=== PATIENT | male | born 1975 | race Caucasian/White ===

== ENCOUNTER 2016-10-27 14:57 | Emergency (ER) | payer OTHER ==
[2016-10-27] MEDS: ORPHENADRINE CITRATE 60 MG/2ML IM ONE (15:45)
[2016-10-27] MEDS: KETOROLAC TROMETHAMINE 60 MG/2 ML VIAL IM ONE (15:45)
--- NOTE | 2016-10-27 16:07 | ED Physician Documentation ---
Low Back Pain - HISTORIAN Historian: patient - HPI Stated Complaint: low back pain Chief Complaint: Low Back Pain/ Injury History: back pain (recurent) Onset: days ago (1) Duration: continues in ED Recent Injury: No Severity: moderate Quality: sharp, similar- prior back pain Front/Back of Body, Lg (Color): 1 - pain Associated Symptoms: denies: problems urinating Worsened By:: movement to RT flexion, movement to LT flexion Relieved By: nothing Further Comments: no - ROS CONST: no problems CVS/RESP: none EYES/ENT: none MS/SKIN/LYMPH: none Neuro/Psych: none - PAST HX Past History: back pain Surgeries/Procedures: none Immunizations: referred to PCP Allergies/Adverse Reactions: Allergies Allergy/AdvReac Type Severity Reaction Status Date / Time No Known Allergies Allergy Verified 10/27/16 15:03 Home Medications: Ambulatory Orders Medication Instructions Recorded NK [NK] 10/27/16 - SOCIAL HX Smoking History: non-smoker Alcohol Use: none Drug Use: none - FAMILY HX Family History: no significant history - VITAL SIGNS Vital Signs: Vital Signs Temp Pulse Resp BP Pulse Ox 98.2 F 82 16 110/73 98 10/27/16 16:20 10/27/16 16:20 10/27/16 16:20 10/27/16 16:20 10/27/16 16:20 - REVIEWED ASSESSMENTS Nursing Assessment Reviewed: Yes Vitals Reviewed: Yes Progress - Results/Orders Results/Orders: ua, l-spine x-ray ordered - Progress Progress: pt. given 60 mg toradol and 60 mg norflex im in er Critical Care Note - Critical Care Note Total Time (mins): 0 ED Results Lab/Radiology - Lab Results Lab Results: ua neg for blood or infection - Radiology Radiology Impressions: l-spine x-ray shows ddd L5-S1 - Orders Orders: ED Orders Category Date Time Status LUMBAR SPINE XR 2 OR 3 VIEWS [L SPINE 2 OR 3 VIEWS] [ Exams 10/27/16 Ordered RAD] Stat URINALYSIS Routine Lab 10/27/16 Ordered Ketorolac Tromethamine [Toradol] Med 10/27/16 15:29 Discontinued 60 mg IM NOW ONE Orphenadrine Citrate [Norflex] Med 10/27/16 15:31 Discontinued 60 mg IM NOW ONE Low Back Pain/Injury - Physical Exam General Appearance: alert, moderate distress EENT: eye inspection normal, ENT inspection normal, pharynx normal, no signs of dehydration, SILVIANO Neck: non-tender, painless ROM, trachea midline Resp/CVS: chest non-tender, breath sounds nml, heart sounds nml, no resp. distress, lungs clear, reg. rate & rhythm Abdomen: non-tender, no organomegaly, no pulsatile mass Back: other (tenderness L5-S1 right, pain with rom) Straight Leg Raising: Positive Left, Positive Right Neuro/Psych: oriented x3, motor nml, sensation nml, bilat. doriflexion nml, reflexes nml, mood/affect nml Skin: warm/dry, normal color Extremities: non-tender, normal range of motion, no evidence of injury, no edema Discharge Clincal Impression: Lumbar strain Qualifiers: Encounter type: initial encounter Qualified Code(s): S39.012A - Strain of muscle, fascia and tendon of lower back, initial encounter Referrals: Primary Doctor,No [Primary Care Provider] - 2 Days Additional Instructions: Moist heat to low back Home Medications: Ambulatory Orders NK [NK] 10/27/16 Comments: Discharged with scripts for meloxicam 1 pill daily and parafon forte 1 pill 4x/ day Condition: Stable Disposition: 01 HOME, SELF-CARE Decision to Admit: NO Decision Time: 16:06
[2016-10-27 16:22] VITALS: BP 110/73
--- NOTE | 2016-10-27 19:05 | Diagnostic Imaging Report ---
JACQUELYN NARAYANAN [facility] [address] [facility].[address] [id number] Report Submission Date: Oct 27, 2016 3:51:00 PM CDT Patient Study Name: DUC DUDLEY Date: Oct 27, 2016 3:30:49 PM CDT Modality Type: CR Gender: M Description: SPINE : 73 Institution: [facility] Physician: JACQUELYN NARAYANAN Examination: Plain film lumbar spine History: Back discomfort Findings: 3 views of the lumbar spine demonstrate normal height. No anterior compression. Mild L5/S1 facet degenerative changes. No soft tissue abnormalities. Impression: Mild degenerative changes. No compression deformity. If suspect disc herniation or patient is experiencing neurologic symptoms, recommend obtaining MRI. Electronically signed on Oct 27, 2016 3:51:00 PM CDT by: Kev WALL
[2016-10-29 05:44] LABS: APPEARANCE,URINE CLEAR (CLEAR); COLOR,URINE YELLOW (YELLOW); OCCULT BLOOD,URINE NEGATIVE (NEGATIVE); UROBILINOGEN URINE 0.2 Eu (0.2-1.0)
== END 2016-10-27 16:20 | disposition home or self-care (01) ==
LOC: ED 14:57
DX: S39.012A Strain of muscle, fascia and tendon of lower back, initial encounter (principal); X58.XXXA Exposure to other specified factors, initial encounter; Y93.9 Activity, unspecified; Y99.9 Unspecified external cause status
CPT/HCPCS: 72100; 81002; 96372; 99283; J1885; J2360